=== PATIENT | female | born 1985 | race Caucasian/White ===

== ENCOUNTER 2024-08-25 13:28 | Outpatient (CLI) | payer BC | END 2024-08-25 13:29 | disposition home or self-care (01) | LOC: BICMAMMO 13:28 | PROVIDERS: ATTEND Obstetrics & Gynecology | DX: Z12.31 Encounter for screening mammogram for malignant neoplasm of breast (principal); Z80.3 Family history of malignant neoplasm of breast; Z91.89 Other specified personal risk factors, not elsewhere classified | CPT/HCPCS: 77063; 77067 ==

== ENCOUNTER 2025-06-04 19:43 | Emergency (ER) | payer BC ==
[2025-06-04] MEDS ORDERED: Acetaminophen 500 MG TAB ONE (19:59)
[2025-06-04] MEDS ORDERED: Ibuprofen 200 MG TAB ONE (20:00)
== END 2025-06-04 20:48 ==
LOC: ERS 19:43
DX: M79.641 Pain in right hand (principal); X50.1XXA Overexertion from prolonged static or awkward postures, initial encounter
CPT/HCPCS: 29125; 99283